=== PATIENT | male | born 1960 | race Caucasian/White ===

== ENCOUNTER 2018-08-09 05:07 | Day surgery (SDC) | payer BC ==
[~2018-08-09] VITALS: Ht 188 cm; Wt 102.9 kg
[2018-08-09 05:49] VITALS: BP 127/59; PULSE 55; TEMP 98
[2018-08-09] MEDS ORDERED: HYZAAR 25 MG-101 TAB PO (06:00)
[2018-08-09] MEDS ORDERED: ZOCOR 20MG20 MG PO (06:00)
--- NOTE | 2018-08-09 06:01 | NUR ---
TO RM 7 AT 0525- CALL LIGHT IN REACH AT BEDSIDE
[2018-08-09] MEDS ORDERED: NORCO 325 MG-51 TAB PO (09:54)
[2018-08-09] MEDS ORDERED: MOTRIN 600600 MG/TAB PO (09:55)
[2018-08-09 10:15] VITALS: BP 134/77; PULSE 49; TEMP 97.6
--- NOTE | 2018-08-09 10:15 | NUR ---
TO RM 7 PER CART FROM PACU. ALERT ORIENTED X3, TALKING TO AND NURSING STAFF. DILL SET OVER INCISION SITES CLEAN DRY INTACT. EATING ICE CHIPS C/O PAIN 06/12 AND DENIES NEED FOR PAIN MEDS DENIES N/V
[2018-08-09 10:30] VITALS: BP 131/66; PULSE 49
--- NOTE | 2018-08-09 10:30 | NUR ---
RECEIVED WATER AND TOLERATING WELL. PUSHED SELF UP IN BED AND TOLERATED WELL.
[2018-08-09 10:45] VITALS: BP 133/70; PULSE 50
--- NOTE | 2018-08-09 10:45 | NUR ---
PATIENT BELTCHING RECEIVED MUFFIN AND 2ND CUP OF WATER.
[2018-08-09 11:00] VITALS: BP 143/80; PULSE 63
--- NOTE | 2018-08-09 11:00 | NUR ---
ATE 100% AND TOLERATED WELL. UP AMBULATED TO BATHROOM VOIDED AND TOLERATED WELL.
--- NOTE | 2018-08-09 11:10 | NUR ---
RECEIVED DISCHARGE INSTRUCTIONS AND VERBALIZED UNDERSTANDING DISCONTINUED IV AND INT- CATHETER INTACT PATIENT GETTING DRESSED
--- NOTE | 2018-08-09 11:30 | NUR ---
DISCHARGED PER WC BY NURSING STAFF TO PRIVATE CAR IN CARE OF [facility]OLYNN.
== END 2018-08-09 11:43 | disposition home or self-care (01) ==
LOC: SDCO 05:07
DX: K40.90 Unilateral inguinal hernia, without obstruction or gangrene, not specified as recurrent (principal); I10 Essential (primary) hypertension; E78.5 Hyperlipidemia, unspecified; Z79.899 Other long term (current) drug therapy
CPT/HCPCS: C1781; J1100; J2405; J2704; J3010; J7120